=== PATIENT | female | born 1990 | race Caucasian/White ===

== ENCOUNTER → 2016-04-20 | Outpatient (REF) | payer BC ==
[2016-04-20 12:56] LABS: HEPATITIS B SURFACE ANTIBODY NEGATIVE (POSITIVE)
== END ==
LOC: M LABDRAW1 11:54
PROVIDERS: ATTEND Physician Assistant Medical
DX: Z00.00 Encounter for general adult medical examination without abnormal findings (principal)

== ENCOUNTER 2016-05-27 21:00 | Emergency (ER) | payer BC, OTHER ==
[~2016-05-27] VITALS: Ht 152.4 cm; Wt 56.2 kg
[2016-05-27] MEDS ORDERED: MULT1TAB8 PO (21:20)
[2016-05-27] MEDS ORDERED: PREVTAB2 PO (21:20)
[2016-05-27] MEDS ORDERED: GI COCKTAIL 50ML BTL(HYOSCYAMINE/MAALOX/LIDOCAINE VISCOUS)(1:3:1) PO ONE (22:00)
[2016-05-27] MEDS ORDERED: NS 1,000 ML IV ONE (22:00)
[2016-05-27 22:29] LABS: BASO % 0.5 % (0.0-1.0); EOS # 0.1 K/mm3 (0.0-0.50); LARGE UNSTAINED CELL # 0.1 K/mm3 (0.0-0.4); LARGE UNSTAINED CELL % 2.2 % (0.0-4.0); LYMPH % 41.8 % (24.0-44.0); MEAN CORPUSCULAR HEMOGLOBIN 29.9 pg (27.0-33.0); MEAN CORPUSCULAR VOLUME 85.5 fl (80.0-96.0); MONO # 0.3 K/mm3 (0.0-0.8); MONO % 6.6 % (0.0-5.0); NEUTROPHILS # 2.2 K/mm3 (1.8-7.7); PLATELET COUNT, AUTOMATED 199 k/mm3 (150-450); RED CELL DISTRIBUTION WIDTH 12.4 % (11.5-14.5); WHITE BLOOD COUNT 4.8 K/mm3 (4.0-10.0)
[2016-05-27] MEDS ORDERED: PANTOPRAZOLE 40MG INJ (PROTONIX) (C9113) IV ONE (22:45)
[2016-05-27 22:47] LABS: CONTROL LINE HCG INT CTR LINE PRESENT
[2016-05-27 22:55] LABS: ALBUMIN 3.9 GM/DL (3.2-5.2); ALBUMIN/GLOBULIN RATIO 1.11 (1.00-1.93); ALKALINE PHOSPHATASE 52 U/L (45-117); ALT/SGPT 18 U/L (12-78); ANION GAP 7 MEQ/L (8-16); AST/SGOT 15 U/L (15-37); BILIRUBIN,DIRECT < 0.1 MG/DL (0.0-0.2); BILIRUBIN,TOTAL 0.3 MG/DL (0.2-1.0); BLOOD UREA NITROGEN 11 MG/DL (7-18); CALCIUM LEVEL 8.5 MG/DL (8.5-10.1); CARBON DIOXIDE LEVEL 28 MEQ/L (21-32); CHLORIDE LEVEL 104 MEQ/L (98-107); CREATININE FOR GFR 0.89 MG/DL (0.55-1.02); GLOMERULAR FILTRATION RATE > 60.0 (>60); GLUCOSE, FASTING 87 MG/DL (70-105); POTASSIUM SERUM 3.6 MEQ/L (3.5-5.1); SODIUM LEVEL 139 MEQ/L (136-145); TOTAL PROTEIN 7.4 GM/DL (6.4-8.2)
[2016-05-27] MEDS ORDERED: ESOM1CAP5 PO (23:45)
[2016-05-27] MEDS ORDERED: PROT1TAB2 PO (23:46)
[2016-05-27 23:57] VITALS: BP 134/76
== END 2016-05-28 | disposition home or self-care (01) ==
LOC: M ED 21:57
DX: K29.70 Gastritis, unspecified, without bleeding (principal)
CPT/HCPCS: 80048; 80076; 83690; 84703; 85025; 96361; 96374; 99282; C9113

== ENCOUNTER → 2017-03-31 | Outpatient (REF) | payer OTHER ==
[2017-03-31 12:18] LABS: THYROGLOBULIN ANTIBODY 15.4 U/ML (<60.0)
[2017-03-31 12:31] LABS: FREE T3 3.1 PG/ML (2.2-4.0); FREE T4 1.26 NG/DL (0.76-1.46)
[2017-04-02 00:06] LABS: THYROID BINDING GLOBULIN 27 ug/mL (13-39)
== END ==
LOC: M LABDRAW1 10:15
DX: R00.2 Palpitations (principal); R63.4 Abnormal weight loss

== ENCOUNTER → 2017-10-19 | Outpatient (REF) | payer OTHER ==
[2017-10-21 14:57] LABS: HPV HYBRID CAPTURE II Negative (Negative)
== END ==
LOC: M LAB REF 13:45
DX: Z01.419 Encounter for gynecological examination (general) (routine) without abnormal findings (principal)